=== PATIENT | male | born 1990 | race Caucasian/White ===

== ENCOUNTER 2020-04-22 15:28 | Emergency (ER) | payer OTHER, SELFPAY ==
[2020-04-22 17:19] VITALS: BP 92/50; PULSE 61; RESP 18; TEMP 36.7; O2SAT 96; BMI 20.3
--- NOTE | 2020-04-22 17:20 | ED_ITS ---
HPI - General Adult General Chief complaint: Dental/Oral Stated complaint: DENTAL PAIN Time Seen by Provider: 04/22/20 17:18 Source: patient Mode of arrival: ambulatory Limitations: no limitations History of Present Illness HPI narrative: 29 yo male with past medical history of substance use here with right lower dental pain x months. Seen by dentist and has had multiple infections so tells me they would not pull the tooth. Currently on amoxicillin with continued pain. Onset (ago): month(s) Related Data Previous Rx's Medication Instructions Recorded clindamycin HCl 150 mg PO TID 10 Days #30 cap 04/22/20 ketorolac 10 mg PO Q6H PRN 5 Days #10 tab 04/22/20 Allergies Allergy/AdvReac Type Severity Reaction Status Date / Time acetaminophen [From TYLENOL] AdvReac Mild DIARRHEA Verified 04/22/20 17:25 Review of Systems Review of Systems: Yes all other systems are reviewed and are negative Constitutional: Constitutional: Reports no additional constitutional complaints, Denies body ache(s), Denies chills, Denies fever(s), Denies headache(s) and Denies weakness Eyes: Eyes: Reports no additional eye complaints and Denies change in vision ENT: Reports system reviewed and no additional complaints, except as documented, Denies dizziness, Denies headache(s), Denies nasal congestion, Denies nasal discharge and Denies neck pain Comments: +dental pain Cardiovascular: Cardiovascular: Reports no additional cardiovascular complaints, Denies chest pain, Denies leg edema and Denies dyspnea Respiratory: Respiratory: Reports no additional respiratory complaints, Denies cough and Denies dyspnea Gastrointestinal: Gastrointestinal: Reports no additional gastrointestinal complaints, Denies abdominal pain, Denies diarrhea, Denies nausea and Denies vomiting Genitourinary: Genitourinary: Denies urinary incontinence Musculoskeletal: Musculoskeletal: Reports no additional musculoskeletal complaints, Denies back pain, Denies arthralgias, Denies joint swelling, Denies neck pain, Denies numbness and Denies tingling Integumentary/Breasts: Skin/Breast: Reports system reviewed and no additional complaints, except as docu and Denies rash Neurologic: Reports system reviewed and no additional complaints, except as documented, Denies Abnormal speech present, Denies dizziness, Denies headache( s), Denies numbness, Denies tingling and Denies weakness PMFSH Past Medical History Attestation statement: The following information was validated with the patient. Source: old records reviewed and nursing notes reviewed Physical Exam Vital Signs: Vital Signs: Last Vital Signs Temp 98.1 F 04/22/20 17:19 Pulse 61 04/22/20 17:19 Resp 18 04/22/20 17:19 BP 92/50 L 04/22/20 17:19 Pulse Ox 96 04/22/20 17:19 Body Mass Index 20.3 Const: General: cooperative, healthy appearing, comfortable and no acute distress Orientation/consciousness: patient oriented x3 Limitations: no limitations HENMT: Head: Yes normal to inspection Ears: hearing grossly normal bilaterally General nose exam: Normal external nose present Face and s inus: Yes normal facial exam Mouth: Normal oral and palatal mucosa present Teeth image: 1. extensive caries, broken tooth with local tenderness, swelling and erythema. No fluctuance or abscess noted. No facial swelling or erythema. No trismus Throat: Yes posterior oropharynx normal Eyes: General: appearance normal, both eyes and all related structures Pupils: Equal, round and reactive pupils present Neck: Neck: Yes normal visual inspection Chest: Chest palpation & inspection: normal inspection of the chest Resp: Effort & Inspection: normal respiratory effort Auscultation: clear to auscultation bilaterally Cardio: Rate: regular rate Rhythm: regular rhythm Peripheral pulses: Peripheral pulses 2+ throughout GI: Inspection: Yes normal to inspection Palpation (GI): Soft to palpation and nontender Auscultation: normal bowel sounds Back/Spine/Pelvis: Thoracic/Lumbar Spine: thoracic and lumbar spine normal to inspection Skin: General skin exam: no rashes or lesions noted Neuro: General: patient oriented x3, no focal motor deficits and normal sensation to monofilament Cranial nerves: Yes Equal, round and reactive pupils present Cognition (Neuro): normal cognition Speech: No Abnormal speech present Gait exam (Neuro): Normal gait present Motor exam (neuro): 5/5 motor strength present throughout Extrem: General: Yes normal to inspection Course Course Course Narrative: 1719-Extensive dental caries with local dental infection. No s/s systemic infection. No trismus or concern for ludwigs. Patient offered dental block but denied. On amoxicillin currently. Requesting a dose of IV antibiotics but I do not believe this is necessary for a local infection. Offered alternative antibiotic and accepted by patient. Given dental clinic list. Reviewed oral hygiene, smoking cessation tips, and close f/u with dentist. Reviewed worrisome signs/symptoms and when to return to ED. Comfortable with discharge home. Discharge Plan Discharge Clinical Impression: Toothache Patient Disposition: Home, Self-Care Instructions: Toothache (ED) Additional Instructions: Salt water gargles Stop amoxicillin. Start clindamycin today Topical oragel See dental clinic list Prescriptions: New clindamycin HCl 150 mg capsule 150 mg PO TID 10 Days Qty: 30 RF: 0 ketorolac 10 mg tablet 10 mg PO Q6H PRN (Reason: pain) 5 Days Qty: 10 RF: 0 Interventions: ED Discharge Assessment Last Done: 04/22/20 17:39
[2020-04-22] MEDS: Ketorolac Tromethamine 60 MG/2 ML VIAL IM (17:37)
== END 2020-04-22 18:00 | disposition home or self-care (01) ==
PROVIDERS: Emergency Provider Emergency Medicine
DX: K02.9 Dental caries, unspecified (principal); Z79.899 Other long term (current) drug therapy
CPT/HCPCS: 96372; 99283; 99284; J1885

== ENCOUNTER 2023-01-16 13:55 | Emergency (ER) | payer OTHER, SELFPAY ==
--- NOTE | 2023-01-16 13:56 | ED.GENADULT ---
HPI - General Adult General Chief complaint: Overdose Stated complaint: OD Time Seen by Provider: 01/16/23 13:56 Source: patient and EMS Mode of arrival: EMS Limitations: no limitations History of Present Illness HPI narrative: Patient is a 32 year old assigned male at with no reported medical history presenting to the emergency department today after an accidental OD. Patient states that he passed out in his car and was found by police who gave him Narcan. Patient admitted to EMS that he had used drugs today. Patient denies any dizziness, lightheadedness, abdominal pain, nausea, vomiting, fever, chills, blurry vision, double vision, loss of vision, chest pain, difficulty breathing, shortness of breath, back pain, night sweats, pain with urination, increased urinary frequency, increased urinary urgency, blood in his urine or stool, syncope or a near syncopal episode, recent trauma or falls, bowel incontinence, bladder incontinence, bowel retention, bladder retention, or any other complaints at this time. Severity: mild Severity scale (1-10): 2 Relieving factors: none Exacerbating factors: none Associated symptoms: denies other symptoms Treatments prior to arrival: none Related Data Previous Rx's Medication Instructions Recorded clindamycin HCl 150 mg capsule 150 mg PO TID 10 days #30 caps 04/22/20 ketorolac 10 mg tablet 10 mg PO Q6H PRN pain 5 days #10 04/22/20 tabs Allergies Allergy/AdvReac Type Severity Reaction Status Date / Time acetaminophen [From TYLENOL] AdvReac Mild DIARRHEA Verified 04/22/20 17:25 Review of Systems Constitutional: Constitutional: Reports no additional constitutional complaints, Denies chills, Denies fever(s) and Denies night sweats Eyes: Eyes: Reports no additional eye complaints, Denies blurry vision, Denies change in vision, Denies diplopia, Denies eye discharge, Denies loss of vision and Denies eye pain ENT: Denies dizziness Cardiovascular: Cardiovascular: Reports no additional cardiovascular complaints, Denies chest pain, Denies lightheadedness, Denies Loss of Consciousness and Denies dyspnea Respiratory: Respiratory: Reports no additional respiratory complaints and Denies dyspnea Gastrointestinal: Gastrointestinal: Reports no additional gastrointestinal complaints, Denies abdominal pain, Denies melena, Denies hematochezia, Denies change in bowel habits and Denies change in stool character Genitourinary: Genitourinary: Reports no additional male genitourinary complaints, Denies hematuria, Denies oliguria, Denies difficulty urinating, Denies dysuria, Denies urinary frequency, Denies urinary hesitancy, Denies urinary incontinence and Denies urinary urgency Musculoskeletal: Musculoskeletal: Reports no additional musculoskeletal complaints, Denies numbness and Denies tingling Neurologic: Denies dizziness, Denies loss of vision, Denies numbness and Denies tingling Psychiatric: Psychiatric: Reports no additional psychiatric complaints Endocrine: Endocrine: Reports no additional endocrine complaints Hematologic/Lymphatic: Hematologic/Lymphatic: Reports no additional hematologic/lymphatic complaints Allergic/Immunologic: Allergic/Immunologic: Reports no additional allergic/immunologic complaints [facility] Past Medical History Attestation statement: The following information was validated with the patient. Source: old records reviewed and nursing notes reviewed Social History Social History Advance Directives: No Advance Directives Information Provided: No Physical Exam ED Vital Signs: Vital Signs - 24 hr 01/16/23 14:06 Temperature 97.6 F Pulse Rate 75 Respiratory Rate 16 Blood Pressure 123/66 Pulse Oximetry 97 Oxygen Delivery Method Room Air BMI result Body Mass Index 19.1 Const General: cooperative, no acute distress, alert and awake Nutritional Appearance: well nourished Orientation/consciousness: patient oriented x3 Limitations: no limitations HENMT Head: Yes normal to inspection and Yes atraumatic Ears: hearing grossly normal bilaterally and external ears normal General nose exam: Normal external nose present, no nasal discharge noted and no epistaxis Face and sinus: Yes normal facial exam, No abrasion and No laceration Mouth: Normal oral and palatal mucosa present, no drooling and no muffled voice Eyes General: appearance normal, both eyes and all related structures Periorbital: periorbital findings normal Eyelids: Yes eyelids normal Conjunctivae: conjunctivae normal Pupils: Equal, round and reactive pupils present EOM: EOMs intact bilaterally Neck Neck: Yes normal visual inspection, Yes full ROM and Yes no lymphadenopathy Chest Chest palpation & inspection: normal inspection of the chest Resp Effort & Inspection: normal respiratory effort and able to speak in complete sentences Auscultation: clear to auscultation bilaterally Cardio Rate: regular rate Rhythm: regular rhythm GI Inspection: Yes normal to inspection Neuro General: patient oriented x3 and moves all extremities Cranial nerves: Yes Equal, round and reactive pupils present Cognition (Neuro): normal cognition Motor exam (neuro): 5/5 motor strength present throughout Sensory Exam: Normal double simultaneous stimulation for sensation Coordination: [id number] test normal Extrem General: Yes normal to inspection, Yes full ROM and Yes capillary refill normal Psych Appearance: grossly normal Mental Status: mental status grossly normal Affect: normal affect Attitude: cooperative Thought process: Normal thought process present Thought content: Normal thought content present Insight: Good insight present (Psych) Medical Decision Making Medical Decision Making MDM Narrative: Patient is a 32 year old assigned male at with no reported medical history presenting to the emergency department today after an accidental overdose. Patient's physical exam was unremarkable. Patient refused all blood work and talks of detox. I explained my physical exam findings to the patient. I answered all questions asked by the patient. Patient was given take home narcan. I stressed the importance of the patient taking his medication as prescribed. I stressed the importance of the patient following up with his primary care provider. I stressed the importance of the patient returning to the emergency department immediately if his symptoms were to worsen or if he were to develop any dizziness, shortness of breath, difficulty breathing, chest pain, blurry vision, loss of vision, nausea, vomiting, abdominal pain, fever, chills, back pain, or any other complaints. Patient verbalized agreement and understanding with this treatment plan and discharge. Differential Diagnosis Differential Diagnoses: The differential diagnosis associated with the presentation includes Accidental overdose. Illicit drug use Independent Historian Clinical information obtained from an independent historian. History obtained from or confirmed by: EMS (EMS provided additional history and confirmed the history provided by the patient.) Discharge Plan Discharge Clinical Impression: Accidental overdose Patient Disposition: Home, Self-Care Instructions: Adult Overdose (ED) Additional Instructions: Please do not use illicit drugs. Please keep this Narcan on you at all times. Follow up with your primary care provider. Return to the emergency department immediately if your symptoms worsen or if you develop any dizziness, shortness of breath, difficulty breathing, chest pain, blurry vision, loss of vision, nausea, vomiting, abdominal pain, fever, chills, back pain, or any other complaints. Prescriptions: No Action clindamycin HCl 150 mg capsule 150 mg PO TID 10 Days Qty: 30 0RF ketorolac 10 mg tablet 10 mg PO Q6H PRN (Reason: pain) 5 Days Qty: 10 0RF Referrals: [facility] Family Medicine [Provider Group] (Call to establish and follow up with a primary care provider. If you already have a primary care provider, please follow up with them.) [facility] [Provider Group] (Call to establish and follow up with a primary care provider. If you already have a primary care provider, please follow up with them.) [facility] [Provider Group] (Call to establish and follow up with a primary care provider. If you already have a primary care provider, please follow up with them.) Discharge Date/Time: 01/16/23 14:25 Print Language: Swiss
[2023-01-16 14:06] VITALS: BP 123/66; BP 150/90; PULSE 75; PULSE 90; RESP 16; TEMP 36.4; O2SAT 97; O2SAT 98; BMI 19.1
--- NOTE | 2023-01-16 14:20 | PC.NURSE ---
patient given 2 take home narcan, speaking in clear and full sentences. patient is awake and alert, ambulated off of unit with steady gait
--- NOTE | 2023-01-16 14:29 | HO.SUDE ---
Met with pt in [facility] after pt presented to ED via EMS after being found in car unresponsive and receiving Narcan with positive effect. Pt denied drug use to provider and is anxious to discharge. Pt briefly engages in conversation with t/w, reports this was third overdose in the past 9 years. Pt reports currently on Suboxone through [facility] but is switching to [facility]. Per Rin, last Suboxone script filled in 10/21/22. Pt reports heroin/fentanyl use, not much, about a bag today. Pt anxious to dc and locate 's car. Pt reports having Narcan at home and is discharging home with Narcan. Denies questions or concerns for t/w. Declines further recovery support.
== END 2023-01-16 14:25 | disposition home or self-care (01) ==
LOC: HO.ED 14:16
PROVIDERS: Emergency Provider Emergency Medicine
DX: T40.1X1A Poisoning by heroin, accidental (unintentional), initial encounter (principal); R40.4 Transient alteration of awareness; Y92.810 Car as the place of occurrence of the external cause; F11.20 Opioid dependence, uncomplicated
CPT/HCPCS: 99283; 99284

== ENCOUNTER 2023-09-30 17:06 | Emergency (ER) | payer OTHER, SELFPAY ==
[2023-09-30 17:14] VITALS: BP 144/96; PULSE 76; RESP 24; TEMP 36.2; O2SAT 98; BMI 20.3
[2023-09-30 17:47] LABS: MANUAL DIFF FLAG NO
[2023-09-30 18:01] LABS: Basophils Absolute Auto 0.1 X10*3/uL (0.0-0.2); Basophils Percent Auto 0.7 % (0-2); Eosinophils Absolute Auto 0.2 X10*3/uL (0.0-0.4); Hematocrit 46.2 % (42.0-52.0); Hemoglobin 15.6 g/dl (14.0-18.0); Imm Gran Abs Auto 0.02 X10*3/uL (0.00-0.03); Imm Gran Pct Auto 0.3 % (0.0-0.4); Lymphocytes Percent Auto 26.3 % (20-40); Mean Corpuscular HGB Conc 33.8 g/dl (31.0-36.0); Mean Corpuscular Hemoglobin 31.8 pg (27.0-33.0); Mean Corpuscular Volume 94.3 fL (80.0-98.0); Monocytes Absolute Auto 0.3 X10*3/uL (0.1-1.2); Monocytes Percent Auto 4.1 % (2-11); Neutrophils Absolute Auto 5.1 x10*3/uL (2.0-8.3); Neutrophils Percent Auto 66.6 % (45-73); Platelet Count 192 X10*3/uL (160-400); Red Cell Distribution Width 12.3 % (11.0-16.0); White Blood Count 7.6 X10*3/uL (4.8-10.8)
[2023-09-30 18:17] LABS: Anion Gap 11 (12-20); Blood Urea Nitrogen 12 mg/dL (9-16); Calcium 10.2 mg/dL (8.4-10.2); Carbon Dioxide 34 mmol/L (22-29); Chloride 101 mmol/L (96-108); Creatinine Clr Calc Pharmacy 115.1; Estimated Glomerular Filt Rate > 60; Ethanol < 10 mg/dL; Glucose Random 120 mg/dL (60-115); Potassium 4.1 mmol/L (3.3-5.1); Sodium 142 mmol/L (135-145)
[2023-09-30 18:28] LABS: Salicylate < 5.0 mg/dL (15-30)
--- NOTE | 2023-09-30 18:35 | ED.GENADULT ---
HPI - General Adult General Chief complaint: Psychiatric Symptoms Stated complaint: crisis Time Seen by Provider: 09/30/23 17:18 Source: patient, RN notes reviewed and old records reviewed Mode of arrival: ambulatory Limitations: no limitations History of Present Illness ED Provider: Najma CARRION narrative: 32-year-old male presents for evaluation of depression, anxiety and substance abuse. Patient reports last few months he has lost his grandmother, mother, and father. He states that just recently his filed for divorce and ?she turned my kids against me. ? Patient states that because he has been going through so much she has relapsed with heroin, cocaine, Xanax off the street, as well as ecstasy. He states ?I have just been doing every drug I can to take my mind off things and short my thoughts off. ? He is not suicidal but feels very hopeless He has no other complaints or concerns at this time Related Data Home Medications ?Medication ?Instructions ?Recorded ?Confirmed methadone 10 mg/5 mL oral solution 110 mg PO DAILY 10/01/23 10/01/23 Allergies Allergy/AdvReac Type Severity Reaction Status Date / Time acetaminophen [From TYLENOL] AdvReac Mild DIARRHEA Verified 09/30/23 17:16 Review of Systems Constitutional: Constitutional: Denies body ache(s), Denies chills, Denies fever(s) and Denies headache(s) Eyes: Eyes: Denies blurry vision ENT: Denies headache(s) Cardiovascular: Cardiovascular: Denies chest pain and Denies dyspnea Respiratory: Respiratory: Denies cough and Denies dyspnea Gastrointestinal: Gastrointestinal: Denies abdominal pain, Denies nausea and Denies vomiting Musculoskeletal: Musculoskeletal: Denies back pain Integumentary/Breasts: Skin/Breast: Denies rash Neurologic: Denies headache(s) Psychiatric: Psychiatric: Reports anxiety, Reports depression, Reports hopelessness, Reports anhedonia and Denies suicidal ideation PMF Social History Social History Smoked in Last 30 Days: Yes Use of substances other than those prescribed or required for medical reasons: Yes Substance Use Type: Crack/Cocaine and Heroin Substance Use Frequency: Recent Binge Last Used Substance: Days (ago) Advance Directives: No Advance Directives Information Provided: No Physical Exam ED Vital Signs: Vital Signs - 24 hr 10/01/23 19:17 07/15/24 19:46 10/02/23 01:09 Temperature 98.7 F 97.4 F Pulse Rate 69 89 Respiratory Rate 16 16 18 Blood Pressure 115/55 L 123/74 Pulse Oximetry 98 99 Oxygen Delivery Method Room Air Room Air 10/02/23 10:50 Temperature 98.1 F Pulse Rate 78 Respiratory Rate 16 Blood Pressure 132/79 Pulse Oximetry 95 Oxygen Delivery Method Room Air BMI result Body Mass Index 20.3 Const General: healthy appearing, comfortable, no acute distress, alert and awake Nutritional Appearance: well nourished Orientation/consciousness: patient oriented x3 HENMT Head: Yes normocephalic and Yes atraumatic Eyes Eyelids: Yes eyelids normal Conjunctivae: conjunctivae normal Sclerae: sclerae normal Corneas: corneas normal Pupils: Equal, round and reactive pupils present EOM: EOMs intact bilaterally Neck Neck: Yes full ROM Resp Effort & Inspection: normal respiratory effort, able to speak in complete sentences and not labored GI Inspection: No distended Palpation (GI): Soft to palpation, not firm, nontender, no guarding and not rigid Skin General skin exam: elasticity normal Neuro General: patient oriented x3 Cranial nerves: Yes Equal, round and reactive pupils present and Yes Bilaterally intact EOM present Cognition (Neuro): normal cognition Extrem Other: Moving all extremities well without any obvious deformities Psych Appearance: grossly normal Mental Status: mental status grossly normal Speech and movement: Normal speech and movement present Affect: Sad affect present Attitude: cooperative Thought process: Normal thought process present Thought content: suicidality and Depressive thoughts present Insight: Good insight present (Psych) Judgement: Good judgement present (Psych) Medications Administered Generic Name Dose Route Start Last Admin Trade Name Freq PRN Reason Stop Dose Admin Lorazepam 2 mg 10/01/23 07:35 10/02/23 10:29 Lorazepam 1 Mg Tablet PO 2 mg Q3H PRN Administration Alcohol Withdrawal Methadone HCl 110 mg 10/01/23 09:00 10/02/23 08:17 Methadone Hcl 20 Mg/2 Ml Oral.Conc PO 110 mg DAILY INOCENCIO Administration Nicotine Polacrilex 2 mg 10/01/23 16:18 10/02/23 07:29 Nicotine Polacrilex 2 Mg Gum BUCCAL 2 mg RQ4H PRN Administration Nicotine Cravings Discontinued Medications Generic Name Dose Route Start Last Admin Trade Name Freq PRN Reason Stop Dose Admin Lorazepam 2 mg 09/30/23 20:17 09/30/23 20:26 Lorazepam 1 Mg Tablet PO 09/30/23 20:18 2 mg ONCE ONE Administration Lorazepam 2 mg 10/01/23 03:09 10/01/23 03:15 Lorazepam 1 Mg Tablet PO 10/01/23 03:10 2 mg ONCE ONE Administration Nicotine 21 mg 10/02/23 10:23 10/02/23 10:29 Nicotine 21 Mg Patch.Td24 TRANSDERMA 10/02/23 10:24 21 mg DAILY ONE Administration Medical Decision Making Medical Decision Making [facility] Narrative: 32-year-old male presents for evaluation of depression and polysubstance abuse. Plan for medical clearance and likely care team evaluation. The patient is not actively suicidal and is not on a section 12 Differential Diagnosis Differential Diagnoses: The differential diagnosis associated with the presentation includes Depression Anxiety Substance abuse Polysubstance abuse Suicidal ideation Lab Data [facility] Lab Attestation statement: I reviewed the patient's lab results. No leukocytosis or anemia. Normal platelet count. No significant electrolyte abnormalities. 09/30/23 17:41 09/30/23 17:41 Labs: Lab Results 09/30/23 09/30/23 Range/Units 17:41 19:44 WBC 7.6 (4.8-10.8) X10*3/uL RBC 4.90 (4.60-5.80) X10*6/uL Hgb 15.6 (14.0-18.0) g/dl Hct 46.2 (42.0-52.0) % MCV 94.3 (80.0-98.0) fL MCH 31.8 (27.0-33.0) pg MCHC 33.8 (31.0-36.0) g/dl RDW 12.3 (11.0-16.0) % Plt Count 192 (160-400) X10*3/uL MPV 11.0 (9.4-12.4) fL Immature Gran % (Auto) 0.3 (0.0-0.4) % Neut % (Auto) 66.6 (45-73) % Lymph % (Auto) 26.3 (20-40) % [place] % (Auto) 4.1 (2-11) % Eos % (Auto) 2.0 (0-4) % Baso % (Auto) 0.7 (0-2) % Lymph # (Auto) 2.0 (1.2-4.9) X10*3/uL [place] # (Auto) 0.3 (0.1-1.2) X10*3/uL Eos # (Auto) 0.2 (0.0-0.4) X10*3/uL Baso # (Auto) 0.1 (0.0-0.2) X10*3/uL Abs Immat Gran (auto) 0.02 (0.00-0.03) X10*3/uL Absolute Neuts (auto) 5.1 (2.0-8.3) x10*3/uL Absolute Nucleated RBC 0.000 (0.0-0.012) X10*3/uL Nucleated RBC % (auto) 0.0 (0.0-0.2) /100WBC Sodium 142 (135-145) mmol/L Potassium 4.1 (3.3-5.1) mmol/L Chloride 101 (96-108) mmol/L Carbon Dioxide 34 H (22-29) mmol/L Anion Gap 11 L (12-20) BUN 12 (9-16) mg/dL Creatinine 0.87 (0.5-1.4) mg/dL Estim Creat Clear Calc 115.1 Estimated GFR > 60 Random Glucose 120 H (60-115) mg/dL Calcium 10.2 (8.4-10.2) mg/dL Urine Color Yellow Urine Appearance Cloudy Urine pH 6.5 (5.0-9.0) Ur Specific [place] 1.010 (1.005-1.025) Urine Protein Negative (Neg-Trace) mg/dL Urine Glucose (UA) Negative (Negative) mg/dL Urine Ketones Negative (Negative) mg/dL Urine Blood Negative (Negative) Urine Nitrite Negative (Negative) Ur Leukocyte Esterase Negative (Negative) Salicylates < 5.0 L (15-30) mg/dL Urine Opiates Screen POSITIVE H (Not Detect) Ur Buprenorphine Scrn Not Detected (Not Detect) ng/mL Ur Oxycodone Screen Not Detected (Not Detect) ng/mL Urine Methadone Screen Positive H (Not Detect) ng/mL Urine Fentanyl Screen POSITIVE H (Not Detect) Ur Barbiturates Screen Not Detected (Not Detect) Ur Phencyclidine Scrn Not Detected (Not Detect) Ur Amphetamines Screen Not Detected (Not Detect) U Benzodiazepines Scrn POSITIVE H (Not Detect) Urine Cocaine Screen POSITIVE H (Not Detect) U Marijuana (THC) Screen POSITIVE H (Not Detect) Ethyl Alcohol < 10 mg/dL Discharge Plan Discharge Clinical Impression: Polysubstance abuse, Depression Patient Disposition: Xfer Psychiatric Hosp Transfer Details: TO [facility] Prescriptions: No Action methadone 10 mg/5 mL Solution 110 mg PO DAILY Patient Comments: Dose verified Linnea BAKER from [facility] [place] at [phone] Interventions: [place]-Suicide Risk Severity Scale Last Done: 10/01/23 19:17 Print Language: Sami ED Observation ED Observation Admit Diagnostic Studies: Mental health evaluation ED Observation Progress Notes 1: Progress Note: 10/02/23 - 08:30 Bethel Chacon DO ED Observation Discharge Plan Exam: Patient here voluntary for depression polysubstance abuse labs and vitals remain normal Comment: Patient going to [facility] transfer paperwork signed.
[2023-09-30 20:00] LABS: Appearance Urine Cloudy; Color Urine Yellow; Glucose Urine UA Negative (Negative); Leukocyte Esterase Urine Negative (Negative); Nitrite Urine Negative (Negative); PH 6.5 (5.0-9.0); Urine Blood Negative (Negative); Urine Ketones Negative (Negative); Urine Protein Negative (Neg-Trace)
[2023-09-30 20:09] LABS: Amphetamine Screen Urine Not Detected (Not Detect); Barbiturates, Urine Not Detected (Not Detect); Benzodiazepines Screen Urine POSITIVE (Not Detect); Buprenorphine Scr Not Detected (Not Detect); Cannabinoid Screen Urine POSITIVE (Not Detect); Cocaine Screen Urine POSITIVE (Not Detect); Fentanyl, urine POSITIVE (Not Detect); Methadone Screen, Urine Positive (Not Detect); Opiate Screen Urine POSITIVE (Not Detect); Oxycodone Screen Urine Not Detected (Not Detect); Phencyclidine Screen Urine Not Detected (Not Detect)
[2023-09-30] MEDS: LORazepam 1 MG TABLET 2 MG PO (20:26)
[2023-10-01 01:37] VITALS: BP 117/79; PULSE 74; RESP 17; TEMP 36.9; O2SAT 98
[2023-10-01] MEDS: LORazepam 1 MG TABLET 2 MG PO ×6 (03:15→22:43)
--- NOTE | 2023-10-01 06:41 | PC.NURSE ---
Patient slept through the night, Ativan 2 mg po twice at 2025 and 314 for comfort, methadone dose verified/faxed to pharmacy/pending provider's approval, care consult ordered/pending evaluation, VSS, no behavior and safety concerns at this time, will continue to monitor
--- NOTE | 2023-10-01 07:17 | HE.PHANOTE ---
Methadone Pt receives from [facility] [place] ([phone] or [phone]). OLIVIA Fischer confirmed patient receives 110 mg, last received 09/29/23 at 01/09/24.
[2023-10-01] MEDS: methADONE HCl 20 MG/2 ML ORAL.CONC 110 MG PO (08:04)
--- NOTE | 2023-10-01 08:34 | PC.NURSE ---
Assumed care of patient at 0645, patient is awake, ambulating with steady gait around BH pod. patient reports that he feels like he is in benzo withdrawal due to a recent Xanax binge. patient requesting Ativan. DO Mary aware. PRN ativan administered per MAY. Patient appears more comfortable now, respirations even and unlabored Continue plan of care for CARE team bria
[2023-10-01] MEDS: Nicotine Polacrilex 2 MG GUM BUCCAL (16:34)
--- NOTE | 2023-10-01 19:16 | PC.NURSE ---
patient appears to remain at rest at present respirations are even and unlabored patient had requested ativan soon after t/w's arrival patient appears in no distress.
[2023-10-01 19:17] VITALS: RESP 16
[2023-10-01 19:46] VITALS: BP 115/55; PULSE 69; RESP 16; TEMP 37.1; O2SAT 98
--- NOTE | 2023-10-02 | ECG_ITS ---
Test Reason : PROLONGED T WAVES Blood Pressure : / mmHG Vent. Rate : 063 BPM Atrial Rate : 063 BPM P-R Int : 142 ms QRS Dur : 084 ms QT Int : 406 ms P-R-T Axes : 072 072 063 degrees QTc Int : 415 ms Normal sinus rhythm Normal ECG No previous ECGs available Referred By: Generic ED Physician Electronically Signed By:STEVEN LANDERS MD
[2023-10-02 01:09] VITALS: BP 123/74; PULSE 89; RESP 18; TEMP 36.3; O2SAT 99
[2023-10-02] MEDS: LORazepam 1 MG TABLET 2 MG PO ×4 (02:19→13:45)
[2023-10-02] MEDS: Nicotine Polacrilex 2 MG GUM BUCCAL ×2 (07:29→12:52)
[2023-10-02] MEDS: methADONE HCl 20 MG/2 ML ORAL.CONC 110 MG PO (08:17)
[2023-10-02] MEDS: Nicotine 21 MG PATCH.TD24 TRANSDERMA (10:29)
[2023-10-02 10:50] VITALS: BP 132/79; PULSE 78; RESP 16; TEMP 36.7; O2SAT 95
--- NOTE | 2023-10-02 11:07 | MHC.CARE ---
Patient has been accepted to [facility] for today, ETA for soonest available transport per Aniyah @ [facility], accepting provider is Dr Karol Reyes. Clark ABEL booking transport now.
[2023-10-02 14:15] VITALS: BP 132/79; PULSE 78; RESP 16; TEMP 36.7; O2SAT 95
== END 2023-10-02 14:18 ==
PROVIDERS: Emergency Provider Internal Medicine
DX: F33.1 Major depressive disorder, recurrent, moderate (principal); F41.9 Anxiety disorder, unspecified; F11.10 Opioid abuse, uncomplicated; F14.10 Cocaine abuse, uncomplicated; R94.31 Abnormal electrocardiogram [ECG] [EKG]; Z79.899 Other long term (current) drug therapy
CPT/HCPCS: 36415; 80048; 80179; 80307; 81003; 85025; 93005; 99285; S9485

== ENCOUNTER → 2023-10-02 10:01 | Outpatient (BNV) | payer OTHER, SELFPAY | PROVIDERS: Emergency Provider Internal Medicine; Visit Provider Internal Medicine Cardiovascular Disease | DX: I45.81 Long QT syndrome (principal) | CPT/HCPCS: 93010 ==

== ENCOUNTER 2024-02-14 14:00 | Emergency (ER) | payer OTHER, SELFPAY ==
[2024-02-14 14:04] VITALS: BP 130/98; BP 145/94; PULSE 105; PULSE 108; RESP 14; TEMP 36.4; O2SAT 97; O2SAT 98; BMI 24.3
--- NOTE | 2024-02-14 14:06 | ED.GENADULT ---
HPI - General Adult General Chief complaint: Psychiatric Symptoms Stated complaint: SI BEHAVIORAL Time Seen by Provider: 02/14/24 14:10 Source: patient and EMS Mode of arrival: EMS Limitations: no limitations History of Present Illness ED Provider: ANASTACIA Gong HPI narrative: 33-year-old male history of substance abuse presenting to the emergency department with anxiety, depression, suicidal ideation with plan to overdose. Patient reports he has been having increasing life stressors he got out of residential a few weeks ago he tried to find his family , kids at the correction where he left thumb however when he came back his family was no longer there. He feels alone. His mom is terminally ill and no longer at home. He feels like he has been abandoned. Denies hallucinations. Denies substance abuse. Denies medical complaints at this time such as chest pain, shortness of breath, fevers, chills, nausea, vomiting, abdominal pain. Related Data Home Medications ?Medication ?Instructions ?Recorded ?Confirmed methadone 10 mg/5 mL oral solution 110 mg PO DAILY 10/01/23 10/01/23 clonidine HCl 0.2 mg tablet 0.2 mg PO BID 02/14/24 02/14/24 gabapentin 400 mg capsule 400 mg PO TID 02/14/24 02/14/24 hydroxyzine pamoate 50 mg capsule 50 mg PO TID 02/14/24 02/14/24 nicotine (polacrilex) 2 mg gum 2 mg PO Q4H PRN Nicotine Cravings 02/14/24 02/14/24 Allergies Allergy/AdvReac Type Severity Reaction Status Date / Time acetaminophen [From TYLENOL] AdvReac Mild DIARRHEA Verified 02/14/24 14:13 Review of Systems Review of Systems: Yes all other systems are reviewed and are negative PMFSH Past Medical History Attestation statement: The following information was validated with the patient. Source: old records reviewed and nursing notes reviewed Social History Social History Alcohol intake: current Smoked in Last 30 Days: Yes Use of substances other than those prescribed or required for medical reasons: Yes Substance Use Type: Crack/Cocaine and Heroin Physical Exam ED Vital Signs: Vital Signs - 24 hr 02/14/24 14:04 02/14/24 14:25 Temperature 97.5 F Pulse Rate 108 H Respiratory Rate 14 16 Blood Pressure 145/94 H Pulse Oximetry 97 Oxygen Delivery Method Room Air BMI result Body Mass Index 24.3 vss Appearance: Alert.? Oriented X3.? No acute distress.? Head: Normocephalic, atraumatic, no step-offs or deformities Eyes: Pupils equal, round and reactive to light.? CVS: Normal heart rate and rhythm.? Pulses normal.? Respiratory: No respiratory distress.? Abdomen: flat Skin: Skin warm and dry.? Normal skin color.? Extremities: No lower extremity edema.? 5/5 strength to bilateral upper and lower extremities Neuro: Oriented X 3.? No motor deficit.? No sensory deficit. CN 2-12 intact Course Reevaluation(s) Reevaluation #1: CBC unremarkable. Chemistry pending. UA clean. Utox pending. Time: 15:08 Reevaluation #2: Chemistry with no acute findings needing intervention, transaminases elevated, no abdominal discomfort reported, this is likely secondary to polysubstance abuse/alcohol abuse. Salicylates, acetaminophen and ethanol negative. At this time patient to be placed into observation to allow more time to be evaluated by behavioral health team. At time observation was started patient common cooperative no acute distress will continue to monitor Time: 15:14 Medical Decision Making Medical Decision Making [facility] Narrative: 33-year-old male presents with anxiety, depression and suicidal ideation due to increasing life stressors. Physical exam benign History and physical exam concerning for substance abuse with anxiety, depression and suicidal ideation. Plan medical clearance evaluation by behavioral health team Differential Diagnosis Differential Diagnoses: The differential diagnosis associated with the presentation includes (History and physical exam concerning for substance abuse with anxiety, depression and suicidal ideation.) Admission/Observation Consideration of admission/observation: Escalation of care including admission/observation considered Lab Data [facility] Lab Attestation statement: I reviewed the patient's lab results. 02/14/24 14:46 02/14/24 14:46 Labs: Lab Results 02/14/24 02/14/24 Range/Units 14:30 14:46 WBC 8.1 (4.8-10.8) X10*3/uL RBC 4.96 (4.60-5.80) X10*6/uL Hgb 15.1 (14.0-18.0) g/dl Hct 44.9 (42.0-52.0) % MCV 90.5 (80.0-98.0) fL MCH 30.4 (27.0-33.0) pg MCHC 33.6 (31.0-36.0) g/dl RDW 12.9 (11.0-16.0) % Plt Count 258 D (160-400) X10*3/uL MPV 10.3 (9.4-12.4) fL Immature Gran % (Auto) 0.2 (0.0-0.4) % Neut % (Auto) 70.2 (45-73) % Lymph % (Auto) 19.7 L (20-40) % Schleicher % (Auto) 7.9 (2-11) % Eos % (Auto) 1.5 (0-4) % Baso % (Auto) 0.5 (0-2) % Lymph # (Auto) 1.6 (1.2-4.9) X10*3/uL Schleicher # (Auto) 0.6 (0.1-1.2) X10*3/uL Eos # (Auto) 0.1 (0.0-0.4) X10*3/uL Baso # (Auto) 0.0 (0.0-0.2) X10*3/uL Abs Immat Gran (auto) 0.02 (0.00-0.03) X10*3/uL Absolute Neuts (auto) 5.7 (2.0-8.3) x10*3/uL Absolute Nucleated RBC 0.000 (0.0-0.012) X10*3/uL Nucleated RBC % (auto) 0.0 (0.0-0.2) /100WBC Sodium 147 H (135-145) mmol/L Potassium 4.6 (3.3-5.1) mmol/L Chloride 106 (96-108) mmol/L Carbon Dioxide 29 (22-29) mmol/L Anion Gap 17 (12-20) BUN 13 (9-16) mg/dL Creatinine 1.02 (0.5-1.4) mg/dL Estim Creat Clear Calc 97.7 Estimated GFR > 60 Random Glucose 104 (60-115) mg/dL Calcium 9.9 (8.4-10.2) mg/dL Magnesium 2.1 (1.6-2.6) mg/dL Total Bilirubin 0.8 (0.0-1.0) mg/dL AST 122 H (5-37) U/L ALT 172 H (0-40) U/L Total Protein 8.0 (6.5-8.0) g/dL Albumin 4.1 (3.5-5.0) g/dL Lipase 17 (8-78) U/L Urine Color Dark Yellow Urine Appearance Clear Urine pH 6.0 (5.0-9.0) Ur Specific [place] >= 1.030 H (1.005-1.025) Urine Protein Trace (Neg-Trace) mg/dL Urine Glucose (UA) Negative (Negative) mg/dL Urine Ketones Negative (Negative) mg/dL Urine Blood Negative (Negative) Urine Nitrite Negative (Negative) Ur Leukocyte Esterase Negative (Negative) Salicylates < 5.0 L (15-30) mg/dL Acetaminophen < 3 (<30) mcg/mL Ethyl Alcohol < 10 mg/dL External Record Review External record reviewed: Office record and Outpatient record Chronic Conditions Patient?s care impacted by: Other (substance abuse ) Critical Care Time Critical Care Time Critical Care Time: No Discharge Plan Discharge Clinical Impression: Suicide ideation, Anxiety, Depressed Patient Disposition: Still a Patient Prescriptions: No Action methadone 10 mg/5 mL Solution 110 mg PO DAILY Patient Comments: Dose verified Linnea BAKER from [facility] [place] at [phone] nicotine (polacrilex) 2 mg gum 2 mg PO Q4H PRN (Reason: Nicotine Cravings) gabapentin 400 mg capsule 400 mg PO TID hydroxyzine pamoate 50 mg capsule 50 mg PO TID clonidine HCl 0.2 mg tablet 0.2 mg PO BID Interventions: [place]-Suicide Risk Severity Scale Last Done: 02/14/24 14:25 Print Language: Tuvaluan
[2024-02-14 14:25] VITALS: RESP 16
--- NOTE | 2024-02-14 14:37 | PC.NURSE ---
Jesús comes in today from the streets, he reports that he is homeless since coming out of shelter a few weeks ago. He reports that he was released from shelter, went back to the custodial that his family was staying at and found his family to be gone. He reports that he went to [facility] for help, he was inpatient for a little less than a week and then once again was released back to the streets. he reports that he was able to visit his kids for a short amount of time but then his took the kids in the middle of the night, timeline of events unclear to this automobile service writer. Pt reports that his also recently filed for divorce and this is also causing him a great deal of stress. Patient is otherwise in no apparent distress, no pain, no complaints offerred. Pt is calm and coopeartive, help seeking at this time. Reporting SI wtihout a plan
[2024-02-14 14:39] LABS: Appearance Urine Clear; Color Urine Dark Yellow; Glucose Urine UA Negative (Negative); Leukocyte Esterase Urine Negative (Negative); Nitrite Urine Negative (Negative); Specific Gravity - Urine >= 1.030 (1.005-1.025); Urine Blood Negative (Negative); Urine Ketones Negative (Negative); Urine Protein Trace mg/dL (Neg-Trace)
[2024-02-14 14:51] LABS: MANUAL DIFF FLAG NO
[2024-02-14 14:54] LABS: Basophils Percent Auto 0.5 % (0-2); Eosinophils Absolute Auto 0.1 X10*3/uL (0.0-0.4); Eosinophils Percent Auto 1.5 % (0-4); Hematocrit 44.9 % (42.0-52.0); Hemoglobin 15.1 g/dl (14.0-18.0); Imm Gran Abs Auto 0.02 X10*3/uL (0.00-0.03); Imm Gran Pct Auto 0.2 % (0.0-0.4); Lymphocytes Absolute Auto 1.6 X10*3/uL (1.2-4.9); Lymphocytes Percent Auto 19.7 % (20-40); Mean Corpuscular HGB Conc 33.6 g/dl (31.0-36.0); Mean Corpuscular Hemoglobin 30.4 pg (27.0-33.0); Mean Corpuscular Volume 90.5 fL (80.0-98.0); Mean Platelet Volume 10.3 fL (9.4-12.4); Monocytes Absolute Auto 0.6 X10*3/uL (0.1-1.2); Monocytes Percent Auto 7.9 % (2-11); Neutrophils Absolute Auto 5.7 x10*3/uL (2.0-8.3); Neutrophils Percent Auto 70.2 % (45-73); Platelet Count 258 X10*3/uL (160-400); Red Blood Count 4.96 X10*6/uL (4.60-5.80); Red Cell Distribution Width 12.9 % (11.0-16.0); White Blood Count 8.1 X10*3/uL (4.8-10.8)
[2024-02-14 15:08] LABS: Acetaminophen LAB < 3 mcg/mL (<30); Salicylate < 5.0 mg/dL (15-30)
[2024-02-14 15:12] LABS: Alanine Aminotransferase 172 U/L (0-40); Albumin Level 4.1 g/dL (3.5-5.0); Anion Gap 17 (12-20); Aspartate Amino Transferase 122 U/L (5-37); Bilirubin Total 0.8 mg/dL (0.0-1.0); Blood Urea Nitrogen 13 mg/dL (9-16); Calcium 9.9 mg/dL (8.4-10.2); Carbon Dioxide 29 mmol/L (22-29); Chloride 106 mmol/L (96-108); Creatinine Clr Calc Pharmacy 97.7; Estimated Glomerular Filt Rate > 60; Ethanol < 10 mg/dL; Glucose Random 104 mg/dL (60-115); Lipase 17 U/L (8-78); Magnesium 2.1 mg/dL (1.6-2.6); Potassium 4.6 mmol/L (3.3-5.1); Sodium 147 mmol/L (135-145)
[2024-02-14 15:26] LABS: Alkaline Phosphatase 112 U/L (39-117)
[2024-02-14 15:34] LABS: Amphetamine Screen Urine Not Detected (Not Detect); Barbiturates, Urine Not Detected (Not Detect); Benzodiazepines Screen Urine Not Detected (Not Detect); Buprenorphine Scr Not Detected (Not Detect); Cannabinoid Screen Urine POSITIVE (Not Detect); Cocaine Screen Urine POSITIVE (Not Detect); Fentanyl, urine POSITIVE (Not Detect); Methadone Screen, Urine Positive (Not Detect); Opiate Screen Urine POSITIVE (Not Detect); Oxycodone Screen Urine Not Detected (Not Detect); Phencyclidine Screen Urine Not Detected (Not Detect)
[2024-02-14] MEDS: hydrOXYzine HCL 50 MG TABLET PO ×2 (16:44→21:07)
--- NOTE | 2024-02-14 16:50 | PC.NURSE ---
pt reports he is withdrawing from benzos, he reports to this RN that he wants to stop methadone or at least taper from it. pt does appear agitated and unhappy at this time. Pt medicated with hydroxyzine per MAR
[2024-02-14] MEDS: LORazepam 2 MG/ML VIAL IM (17:35)
--- NOTE | 2024-02-14 19:51 | PC.NURSE ---
Pt reporting no relief with Ativan IM administration. Pt continues to report tremor, anxiety and sweating. Provider aware. Pt also reports being off his methadone for four days. He reports that he takes 100mg Methadone at baseline from [facility]. [facility] facility closed today and there is no after hours number to reach out to. Plan to give patient 30mg Methadone for the time being until we are able to verify
[2024-02-14] MEDS: methADONE HCl 20 MG/2 ML ORAL.CONC 30 MG PO (20:10)
[2024-02-14] MEDS: cloNIDine HCL 0.2 MG TABLET PO (21:07)
[2024-02-14] MEDS: Gabapentin 400 MG CAPSULE PO (21:07)
[2024-02-14 21:16] VITALS: BP 131/76; PULSE 72; RESP 18; TEMP 36.6; O2SAT 97
[2024-02-14 22:05] VITALS: PULSE 72
--- NOTE | 2024-02-14 22:06 | PC.NURSE ---
Patient once again reporting feeling unwell, COWS score of 16. ANASTACIA Zavala aware
[2024-02-14] MEDS: Morphine Sulfate Immed Release 15 MG TABLET 30 MG PO (22:41)
[2024-02-14] MEDS: LORazepam 1 MG TABLET 2 MG PO (22:41)
--- NOTE | 2024-02-14 23:28 | PC.NURSE ---
Addendum entered by Odilia Heard RN 02/14/24 23:34: Pt is not wearing a hat. Information entered in error. Addendum entered by Odilia Heard RN 02/14/24 23:33: Pt is A 33 y/o male. Original Note: Took report from off-going RN at 2300 hours. Pt is a 33 y/o female who presents for evaluation of SI without a plan and polysubstance abuse. Pt is calm and cooperative, independent with ADLs, and denies any HI at this time. Pt is wearing a hat, reports it is for congregation reason, and has was checked for safety upon arrival. Inpatient bed search is ongoing. Will continue to monitor for any changes.
--- NOTE | 2024-02-15 | ECG_ITS ---
Test Reason : CHECK QT Blood Pressure : / mmHG Vent. Rate : 075 BPM Atrial Rate : 075 BPM P-R Int : 136 ms QRS Dur : 086 ms QT Int : 424 ms P-R-T Axes : 073 070 049 degrees QTc Int : 473 ms Normal sinus rhythm Normal ECG When compared with ECG of 02-OCT-2023 10:01, No significant changes seen Referred By: Chery Hernandez Electronically Signed By:JAJA KRUSE
--- NOTE | 2024-02-15 01:29 | PC.NURSE ---
Pt is sleeping in bed in supine position, appears comfortable. Easily arousable with verbal stimuli. Changes positions independently as desired. Will continue to monitor for any changes.
--- NOTE | 2024-02-15 01:49 | PC.NURSE ---
Pt reports feeling weak and asked for some juice and water. Pt has been up freqently to the nurse's station without issue asking for food and drinks.
[2024-02-15 02:50] VITALS: PULSE 66
[2024-02-15 02:52] VITALS: BP 100/71; PULSE 68; RESP 16; TEMP 36.4; O2SAT 96
[2024-02-15 02:56] VITALS: BP 100/71; PULSE 66; RESP 16; TEMP 36.4; O2SAT 96
[2024-02-15 03:18] VITALS: BP 100/71
--- NOTE | 2024-02-15 03:20 | PC.NURSE ---
Pt OOB and verbalized frustration with Doctor after being offered Clonidine for c/o chills, restless legs, racing thoughts, and feeling itching in his arms. Pt decined the clonidine and threatened to kick the alex and wake everyone up. With anger in his voice, expressed that clonidine won't do anything for someone who takes 100mg of Methadone daily. Security contacted and asked to float into the pod in case of escalation. Pt requested to speak with the doctor directly. made aware.
--- NOTE | 2024-02-15 03:46 | PC.NURSE ---
Pt is becoming increasingly agitated and now sitting at the nurse's station waiting for the doctor to appear for further conversation. Pt reports he will leave here in handcuffs if he has too just to get what he needs for medications.
[2024-02-15] MEDS: LORazepam 1 MG TABLET 2 MG PO ×4 (04:07→13:34)
--- NOTE | 2024-02-15 06:19 | HE.PHANOTE ---
Addendum entered by Carine Spears [facility] 02/15/24 06:53: Spoke to Odilia in the pod who called [facility], Odilia spoke to behavioral RN Simran who confirmed he last got 100mg on 02/10 @0624. Contacted Dr[address] Bacon to reduce dose to 75mg due to this being his 4th missed day Original Note: RE: methadone Received verification form; last dose 100mg on 01/30/24 @0800 from [facility]. Provider put in for 100mg daily but was messaged about re-titration.
--- NOTE | 2024-02-15 06:54 | PC.NURSE ---
Last dose of methadone at [facility] was 100mg on 01/30/24 at 0800 hrs. Pt was admitted to [facility] 01/31/2024 - 02/11/24. Last dose of methadone at [facility] was 100mg on 02/11/24 at 0624 hrs per PAGE Khalil. Pt discharged home from [facility]. Last verified dose of administration is 02/11/24 at 0624 hrs. Information was relayed to [facility] pharmacy. Pharmacy to call provider to adjust the dose by 25%. Current order for methadone is pending correction. Pt requesting more ativan, provider aware. Will continue to monitor for changes.
[2024-02-15] MEDS: methADONE HCl 20 MG/2 ML ORAL.CONC 75 MG PO (07:20)
--- NOTE | 2024-02-15 07:24 | PC.NURSE ---
PT OOB eating breakfast at table in tv area with another pt.
[2024-02-15 08:24] VITALS: BP 100/71
[2024-02-15] MEDS: hydrOXYzine HCL 50 MG TABLET PO (08:29)
[2024-02-15] MEDS: Gabapentin 400 MG CAPSULE PO (08:29)
--- NOTE | 2024-02-15 12:43 | PC.NURSE ---
removed methadone 110 mg from pt's home med list for admissions purposes. methadone 75mg daily in pt's MAR (dose reduced bc pt went without for four days)
--- NOTE | 2024-02-15 13:58 | PHA.MEDREC ---
Addendum entered by Amando Whelan allan 02/15/24 14:32: Med rec reviewed Original Note: Pharmacy Consult ? Medication Reconciliation Pharmacy reviewed med rec done by nursing. Claims match what was confirmed on med rec.
--- NOTE | 2024-02-15 14:01 | MHC.CARE ---
Pt has been accepted to [facility] [address] [place] [phone] Phone:? Dr Duff is the accepting doctor [facility] 02/15/24 ED provider, charge accounts audit clerk, Computing Machine Operator, and pt?s nurse have been notified via [employer] text.
--- NOTE | 2024-02-15 15:06 | PC.NURSE ---
attempted to call [employer] 2x with provided number, no answer after several minutes. attempted to call [employer] with number on Website, was not able to get through to nurse
[2024-02-15 15:30] VITALS: BP 123/71; PULSE 72; RESP 18; TEMP 36.2; O2SAT 96
== END 2024-02-15 15:32 ==
PROVIDERS: Physician Assistant; Emergency Provider Emergency Medicine Emergency Medical Services
DX: R45.851 Suicidal ideations (principal); F41.9 Anxiety disorder, unspecified; F32.A Depression, unspecified; R45.1 Restlessness and agitation; F19.10 Other psychoactive substance abuse, uncomplicated; F11.20 Opioid dependence, uncomplicated; Z79.899 Other long term (current) drug therapy
CPT/HCPCS: 36415; 80053; 80143; 80179; 80307; 81003; 83690; 83735; 85025; 93005; 99285; J2060

== ENCOUNTER → 2024-02-15 10:40 | Outpatient (BNV) | payer OTHER, SELFPAY | PROVIDERS: Emergency Provider Emergency Medicine Emergency Medical Services; Visit Provider Internal Medicine | DX: R45.851 Suicidal ideations (principal) | CPT/HCPCS: 93010 ==

== ENCOUNTER 2024-09-12 23:57 | Inpatient (IN) | payer OTHER, SELFPAY ==
[2024-09-13 00:09] VITALS: BP 121/79; PULSE 83; RESP 16; TEMP 36; O2SAT 100; BMI 15.6
--- OUTSIDE RECORDS SUMMARY | 2024-09-13 00:23 | XMS_ITS | Clinical Summary ---
Author Organization [facility] Address [address] [place] [address] Phone Care Team Providers Care Recovery Operator Name Role Phone Robert Sloan MD Primary Care Provider Allergies No known active allergies Medications calcium carbonate (TUMS) 500 mg (200 mg elemental calcium) chewable tablet Chew 2 tablets (1,000 mg total). 10/12/2023 Active cloNIDine (CATAPRES) 0.1 mg tablet Take 1 tablet (0.1 mg total) by mouth. 10/26/2023 Active hydrOXYzine HCL (ATARAX) 50 mg tablet Take 1 tablet (50 mg total) by mouth. 10/26/2023 Active multivitamin (multivitamin with folic acid) tablet Take 1 tablet by mouth daily. 10/26/2023 Active naloxone (NARCAN) 4 mg/0.1 mL nasal spray [place] 0.1 mL into one nostril. Repeat with second device into other nostril after 3 min if no or minimal response. 10/12/2023 Active nicotine polacrilex (NICORETTE) 2 mg gum Take 2 each (4 mg total) by mouth. 10/26/2023 Active senna (SENOKOT) 8.6 mg tablet Take 2 tablets (17.2 mg total) by mouth. 10/12/2023 Active docusate sodium (COLACE) 100 mg capsule Take 1 capsule (100 mg total) by mouth every 12 (twelve) hours. 60 capsule 08/08/2024 09/08/19 25 Active Problems Problem Noted Date Diagnosed Date Anxiety 05/08/2023 History of opioid abuse ([facility] V24, [facility] V2 8) 05/08/2023 Opiate abuse, episodic ([facility] V24, [facility] V28 ) 08/22/2020 Overview (12/27/2023): On suboxone Cannabis abuse 10/09/2005 Overview (12/27/2023): IMO update Encounters Date Type Department Care Team Description 08/07/2024 10:49 PM EDT - 08/08/2024 1:[address] [facility] [address] [place] [id number] Erica Mac MD Dysuria (Primary Dx); Right sided abdominal pain; Elevated liver transaminase level; Constipation, unspecified constipation type Discharge Disposition: Home or Self Care from Last 3 Months Medical History Medical History Date Comments Kidney calculi Social History Tobacco Use Types Packs/Day Years Used Date Smoking Tobacco: Every Day Cigarettes Smokeless Tobacco: Never Alcohol Use Standard Drinks/Week Comments Not Currently 0 (1 standard drink = 0.6 oz pur e alcohol) Sex and Gender Information Value Date Recorded Sex Assigned at Not on file Legal Sex Male 6:20 AM EST Gender Identity Not on file Sexual Orientation Not on file Obstetrics History Last Filed Vital Signs Vital Sign Reading Time Taken Comments Blood Pressure 105/52 08/08/2024 12:10 PM EDT Pulse 50 08/08/2024 12:10 PM EDT Temperature 36.5 C (97.7 F) 08/08/2024 12:10 PM EDT Respiratory Rate 17 08/08/2024 12:10 PM EDT Oxygen Saturation 97% 08/08/2024 12:10 PM EDT Inhaled Oxygen Concentration - - Weight 72.6 kg (160 lb) 08/07/2024 6:56 PM EDT Height 185.4 cm (6' 1 ) 08/07/2024 6:56 PM EDT Body Mass Index 21.11 08/07/2024 6:56 PM EDT Plan of Treatment Health Maintenance Due Date Last Done Comments DTaP,Tdap,and Td Vaccines (1 - Tdap) 10/26/2007 Hepatitis B Vaccines (1 of 3 - 19+ 3-dose series) 10/26/2007 Pneumococcal Vaccine: Pediat rics (0 to 5 Years) and At-Risk Patients (6 to 64 Years) (1 of 2 - PCV) 10/26/2007 Cholesterol Screening (Lipid Panel) 02/19/2022 Depression Screening 02/19/2022 HIV Screening 02/19/2022 Hepatitis C Screening 02/19/2022 Social Influencers of Health Screening 02/19/2022 COVID-19 Vaccine (1 - 2023-2 5 season) 2023 Hepatitis A Vaccines (2 of 2 - Risk 2-dose series) 06/08/2024 12/10/2023 Influenza Vaccine (Season Ended) 2024 HIB Vaccines Aged Out No longer eligi ble based on patient's age to complete this topic HPV Vaccines Aged Out No longer eligi ble based on patient's age to complete this topic IPV Vaccines Aged Out No longer eligi ble based on patient's age to complete this topic MMR Vaccines Aged Out No longer eligi ble based on patient's age to complete this topic Meningococcal ACWY Vaccine Aged Out N o longer eligible based on patient's age to complete this topic Meningococcal B Vaccine Aged Out No l onger eligible based on patient's age to complete this topic RSV Immunization Patients Un malik 20 months Aged Out No longer eligible b ased on patient's age to complete this topic Varicella Vaccines Aged Out No longer eligible based on patient's age to complete this topic Procedures Procedure Name Priority Date/Time Associated Diagnosis Comments MR ABDOMEN WO CONTRAST MRCP STAT 08/08/2024 11:53 AM EDT US ABDOMEN LIMITED STAT 08/08/2024 8: [address] ABDOMEN PELVIS W CONTRAST STAT 08/08/2024 5:25 AM EDT DENNEY URINE CULTURE TUBE STAT 08/08/2024 12:08 AM EDT URINALYSIS WITH REFLEX MICROSCOPIC AND CULTURE STAT 08/08/2024 12:08 AM EDT URINALYSIS WITH REFLEX MICROSCOPIC AND CULTURE STAT 08/08/2024 12:08 AM EDT CHLAMYDIA TRACHOMATIS AND NEISSERIA GONORRHOEAE PCR STAT 08/08/2024 12:08 AM EDT CBC WITH AUTO DIFFERENTIAL STAT 08/07/2024 7:02 PM EDT COMPREHENSIVE METABOLIC PANEL STAT 08/07/2024 7:02 PM EDT CBC AND DIFFERENTIAL STAT 08/07/2024 7:02 PM EDT from Last 3 Months Results * MR Abdomen wo Contrast MRCP (08/08/2024 11:53 AM EDT) Anatomical Region Laterality Modality Body Magnetic Resonan ce 08/08/2024 12:3 3 PM EDT Impressions 08/08/2024 12:44 PM EDT Mild biliary duct dilatation without choledocholithiasis or obstructing mass. -------- FINAL REPORT -------- Dictated By: SHIRLEY BOOTH Dictated Date: 08/08/2024 12:33 ET Assigned Physician: SHIRLEY BOOTH Reviewed and Electronically Signed By: SHIRLEY BOOTH Signed Date: 08/08/2024 12:44 ET Workstation ID: [id number] Transcribed By: Self Edit Transcribed Date: 08/08/2024 12:33 ET Narrative 08/08/2024 12:44 PM EDT PROCEDURE: Abdominal MRI INDICATION: Pain TECHNIQUE: Multiplanar, multisequence MRI of the abdomen Without contrast. COMPARISON: Same day ultrasound FINDINGS: Hepatic parenchymal signal is normal. Subcentimeter hepatic cysts. No suspicious liver lesions. Gallbladder is normal. No cholelithiasis. Biliary ductal dilatation with common bile duct measuring up to 10 mm. Common bile duct smoothly tapers to the ampulla. No choledocholithiasis or obstructing mass detected on this noncontrast exam. Spleen, adrenal glands, and pancreas are within normal limits. Kidneys are normal. Abdominal aorta is normal in size. No retroperitoneal or mesenteric lymphadenopathy. Large stool throughout the colon. No bowel obstruction. No ascites or fluid collection. Visualized intrathoracic structures, superficial soft tissues, and bones are normal. Procedure Note Shirley Booth MD - 08/08/2024 PROCEDURE: Abdominal MRI INDICATION: Pain TECHNIQUE: Multiplanar, multisequence MRI of the abdomen Withoutcontrast. COMPARISON: Same day ultrasound FINDINGS: Hepatic parenchymal signal is normal. Subcentimeter hepatic cysts. Nosuspicious liver lesions. Gallbladder is normal. No cholelithiasis. Biliary ductal dilatation with common bile duct measuring up to 10 mm.Common bile duct smoothly tapers to the ampulla. No choledocholithiasisor obstructing mass detected on this noncontrast exam. Spleen, adrenal glands, and pancreas are within normal limits. Kidneys are normal. Abdominal aorta is normal in size. No retroperitoneal or mesentericlymphadenopathy. Large stool throughout the colon. No bowel obstruction. No ascites orfluid collection. Visualized intrathoracic structures, superficial soft tissues, and bonesare normal. IMPRESSION: Mild biliary duct dilatation without choledocholithiasis or obstructingmass. -------- FINAL REPORT -------- Dictated By: SHIRLEY BOOTH Dictated Date: 08/08/2024 12:33 ET Assigned Physician: SHIRLEY BOOTH Reviewed and Electronically Signed By: SHIRLEY BOOTH Signed Date: 08/08/2024 12:44 ET Workstation ID: [id number] Transcribed By: Self Edit Transcribed Date: 08/08/2024 12:33 ET Cande GALAVIZ IMG MRI PROCEDURES Fin al Result * US Abdomen Limited (08/08/2024 8:53 AM EDT) Anatomical Region Laterality Modality Body Ultrasound 08/08/2024 8:59 AM EDT Impressions 08/08/2024 9:05 AM EDT NO CHOLELITHIASIS OR EVIDENCE OF CHOLECYSTITIS. BILIARY DUCTAL DILATATION WITHOUT OBSTRUCTING STONE OR MASS SEEN BY CT. MRCP COULD EVALUATE FURTHER. -------- FINAL REPORT -------- Dictated By: SHIRLEY BOOTH Dictated Date: 08/08/2024 08:59 ET Assigned Physician: SHIRLEY BOOTH Reviewed and Electronically Signed By: SHIRLEY BOOTH Signed Date: 08/08/2024 09:05 ET Workstation ID: [id number] Transcribed By: Self Edit Transcribed Date: 08/08/2024 08:59 ET Narrative 08/08/2024 9:05 AM EDT PROCEDURE: US ABDOMEN LIMITED INDICATION: Pain TECHNIQUE: 2-D denney scale, color Doppler ultrasound of the abdomen. COMPARISON: No priors available. FINDINGS: Visualized portions of the pancreas, aorta, and IVC are within normal limits. No focal liver lesions. No cholelithiasis. Distended gallbladder and biliary tree with biliary ductal dilatation. Common bile duct measures 14 mm. Sonographic Renteria's sign was not reported. Right kidney measures 10.5 cm in length. No hydronephrosis. No ascites. Procedure Note Shirley Booth MD - 08/08/2024 PROCEDURE: US ABDOMEN LIMITED INDICATION: Pain TECHNIQUE: 2-D denney scale, color Doppler ultrasound of the abdomen. COMPARISON: No priors available. FINDINGS: Visualized portions of the pancreas, aorta, and IVC are withinnormal limits. No focal liver lesions. No cholelithiasis. Distended gallbladder and biliary tree with biliaryductal dilatation. Common bile duct measures 14 mm. Sonographic Renteria'ssign was not reported. Right kidney measures 10.5 cm in length. No hydronephrosis. No ascites. IMPRESSION: NO CHOLELITHIASIS OR EVIDENCE OF CHOLECYSTITIS. BILIARY DUCTAL DILATATION WITHOUT OBSTRUCTING STONE OR MASS SEEN BY CT.MRCP COULD EVALUATE FURTHER. -------- FINAL REPORT -------- Dictated By: SHIRLEY BOOTH Dictated Date: 08/08/2024 08:59 ET Assigned Physician: SHIRLEY BOOTH Reviewed and Electronically Signed By: SHIRLEY BOOTH Signed Date: 08/08/2024 09:05 ET Workstation ID: [id number] Transcribed By: Self Edit Transcribed Date: 08/08/2024 08:59 ET us Erica Mac MD IMG US PROCEDURES Final Result * CT Abdomen Pelvis w Contrast (08/08/2024 5:25 AM EDT) Anatomical Region Laterality Modality Body Computed Tomogra phy 08/08/2024 6:59 AM EDT Impressions 08/08/2024 6:59 AM EDT Severe / dense retained stool thorughout the colon with impacted appearance. No dilated bowel loops or air fluid levels. Appendix not seen, likely obscured by the extensive retained colonic stool. Biliary ductal dilation with common bile duct at 9 mm. No visible ductal stone or mass. Consider RUQ US or MRCP correlation. This document has been electronically signed by: Ketan Jaimes MD on 08/08/2024 06:59:50 Narrative 08/08/2024 6:59 AM EDT INDICATION: RLQ abdominal pain, appendicitis suspected (Age >= 14y) CT abdomen and pelvis with IV contrast. Comparison: None Findings: No free air. No solid liver mass. No calcified gallstones. Biliary ductal dilation with common bile duct at 9 mm. No visible ductal stone or mass. No splenomegaly or suspicious splenic lesions. No solid or cystic pancreatic mass. No pancreatic ductal dilation. No acute inflammatory changes. Adrenal glands without nodule. No suspicious renal mass. No hydronephrosis. No significant stranding. Bladder without acute pathology. Severe / dense retained stool thorughout the colon with impacted appearance. No dilated bowel loops or air fluid levels. Appendix not seen, likely obscured by the extensive retained colonic stool. No adenopathy. No abdominal aortic aneurysm. No suspicious pelvic masses. No acute soft tissue pathology. No acute osseous pathology. Procedure Note Ketan Jaimes MD - 08/08/2024 INDICATION: RLQ abdominal pain, appendicitis suspected (Age >= 14y) CT abdomen and pelvis with IV contrast. Comparison: None Findings: No free air. No solid liver mass. No calcified gallstones. Biliary ductal dilation with common bile duct at 9 mm. No visible ductal stone or mass. No splenomegaly or suspicious splenic lesions. No solid or cystic pancreatic mass. No pancreatic ductal dilation. No acute inflammatory changes. Adrenal glands without nodule. No suspicious renal mass. No hydronephrosis. No significant stranding. Bladder without acute pathology. Severe / dense retained stool thorughout the colon with impacted appearance. No dilated bowel loops or air fluid levels. Appendix not seen, likely obscured by the extensive retained colonic stool. No adenopathy. No abdominal aortic aneurysm. No suspicious pelvic masses. No acute soft tissue pathology. No acute osseous pathology. IMPRESSION: Severe / dense retained stool thorughout the colon with impacted appearance. No dilated bowel loops or air fluid levels. Appendix not seen, likely obscured by the extensive retained colonic stool. Biliary ductal dilation with common bile duct at 9 mm. No visible ductal stone or mass. Consider RUQ US or MRCP correlation. This document has been electronically signed by: Ketan Jaimes MD on 08/08/2024 06:59:50 us Erica Mac MD IMG CT PROCEDURES Final Result * (ABNORMAL) Urinalysis with reflex microscopic and culture (08/08/2024 12:08 AM EDT) Specific [place] Urine 1.033(H) 1.003 - 1.030 LAB URINALYSIS - AUTOMATED METHOD 08/08/2024 12:[address] [facility] pH, Urine 6.0 5.0 - 8.0 pH LAB URINALYSIS - AUTOMATED METHOD 08/08/2024 12:[address] [facility] Leukocytes, Urine Negative Negative LAB URINALYSIS - AUTOMATED METHOD 08/08/2024 12:[address] [facility] Nitrite, Urine Negative Negative LAB URINALYSIS - AUTOMATED METHOD 08/08/2024 12:[address] [facility] Protein, Urine Trace <=Trace mg/dL LAB URINALYSIS - AUTOMATED METHOD 08/08/2024 12:[address] [facility] Glucose, Urine Negative Negative mg/dL LAB URINALYSIS - AUTOMATED METHOD 08/08/2024 12:[address] [facility] Ketones, Urine Trace(A) Negative mg/dL LAB URINALYSIS - AUTOMATED METHOD 08/08/2024 12:[address] [facility] Urobilinogen, Urine 2.0(A) 0.2 - 1.0 mg/dL LAB URINALYSIS - AUTOMATED METHOD 08/08/2024 12:[address] [facility] Bilirubin, Urine Negative Negative LAB URINALYSIS - AUTOMATED METHOD 08/08/2024 12:[address] [facility] Blood, Urine Negative Negative LAB URINALYSIS - AUTOMATED METHOD 08/08/2024 12:23 AM EDT [facility] Urine Urine specimen obtained by clean catch procedure / Unknown Non-blood Collection / Unknown 08/08/2024 12:08 AM EDT 08/08/2024 12:16 AM EDT Erica Mac MD LAB URINE ORDERABLES Fin al Result Performing Organization Address City/[facility]/ZIP Co de Phone Number [facility] [address] [place] [address], [place] [phone] * Denney urine culture tube (08/08/2024 12:08 AM EDT) Extra Tube Hold for add-ons. 08/08/2024 2:01 AM EDT [facility] Comment:Auto resulted. Urine Urine specimen obtained by clean catch procedure / Unknown Non-blood Collection / Unknown 08/08/2024 12:08 AM EDT 08/08/2024 12:16 AM EDT Erica Mac MD LAB URINE ORDERABLES Fin al Result Performing Organization Address [facility]/ZIP Co de Phone Number [facility] [address] [place] [address], [place] [phone] * Chlamydia trachomatis and Neisseria gonorrhoeae molecular study (08/08/2024 12:08 AM EDT) Neisseria gonorrhoeae PCR Negative Negative LAB MOLECULAR DIAGNOSTICS METHOD 08/08/2024 10:01 AM EDT [facility] Chlamydia trachomatis PCR Negative Negative LAB MOLECULAR DIAGNOSTICS METHOD 08/08/2024 10:01 AM EDT [facility] Urine First stream urine specimen / Unknown Non-blood Collection / Unknown 08/08/2024 12:08 AM EDT 08/08/2024 12:15 AM EDT us Erica Mac MD LAB MICROBIOLOGY - GENER AL ORDERABLES Final Result [facility] [address] [place] [address], [place] [phone] * (ABNORMAL) CBC auto differential (08/07/2024 7:02 PM EDT) WBC 8.5 4.8 - 10.8 K/mcL LAB HEMETOLOGY METHOD 08/07/2024 7:22 PM EDT [facility] RBC 4.40(L) 4.50 - 5.50 M/mcL LAB HEMETOLOGY METHOD 08/07/2024 7:22 PM EDT [facility] Hemoglobin 13.5 13.5 - 17.5 g/dL LAB HEMETOLOGY METHOD 08/07/2024 7:22 PM EDT [facility] Hematocrit 41.0(L) 42.0 - 54.0 % LAB HEMETOLOGY METHOD 08/07/2024 7:22 PM EDT [facility] MCV 93.4 79.0 - 98.0 FL LAB HEMETOLOGY METHOD 08/07/2024 7:22 PM EDT [facility] MCH 30.8 27.0 - 32.0 pcg LAB HEMETOLOGY METHOD 08/07/2024 7:22 PM EDT [facility] MCHC 32.9 32.0 - 37.0 g/dL LAB HEMETOLOGY METHOD 08/07/2024 7:22 PM EDT [facility] RDW 13.1 11.0 - 15.0 % LAB HEMETOLOGY METHOD 08/07/2024 7:22 PM EDT [facility] Platelets 171 130 - 400 K/mcL LAB HEMETOLOGY METHOD 08/07/2024 7:22 PM EDT [facility] MPV 12.1(H) 7.0 - 11.0 FL LAB HEMETOLOGY METHOD 08/07/2024 7:[address] [facility] NRBC 0.0 <1.0 % LAB HEMETOLOGY METHOD 08/07/2024 7:[address] [facility] NRBC Absolute 0.00 <0.10 K/mcL LAB HEMETOLOGY METHOD 08/07/2024 7:[address] [facility] Neutrophils Relative 60.3 % LAB HEMETOLOGY METHOD 08/07/2024 7:[address] [facility] Lymphocytes Relative 33.6 % LAB HEMETOLOGY METHOD 08/07/2024 7:[address] [facility] Monocytes Relative 4.9 % LAB HEMETOLOGY METHOD 08/07/2024 7:[address] [facility] Eosinophils Relative 0.6 % LAB HEMETOLOGY METHOD 08/07/2024 7:[address] [facility] Basophils Relative 0.5 % LAB HEMETOLOGY METHOD 08/07/2024 7:[address] [facility] Immature Granulocytes Relative 0.1 % LAB HEMETOLOGY METHOD 08/07/2024 7:[address] [facility] Neutrophils Absolute 5.12 1.50 - 7.00 K/mcL LAB HEMETOLOGY METHOD 08/07/2024 7:[address] [facility] Lymphocytes Absolute 2.86 1.00 - 5.00 K/mcL LAB HEMETOLOGY METHOD 08/07/2024 7:[address] [facility] Monocytes Absolute 0.42 0.20 - 1.00 K/mcL LAB HEMETOLOGY METHOD 08/07/2024 7:[address] [facility] Eosinophils Absolute 0.05 0.00 - 0.50 K/mcL LAB [facility] Basophils Absolute 0.04 0.00 - 0.20 K/mcL LAB HEMETOLOGY METHOD 08/07/2024 7:22 PM EDT [facility] Immature Granulocytes Absolute 0.01 0.00 - 0.03 K/mcL LAB HEMETOLOGY METHOD 08/07/2024 7:22 PM EDT [facility] Blood Venous blood specimen / Unknown Venipuncture / Unknown 08/07/2024 7:02 PM EDT 08/07/2024 7:12 PM EDT us David Jarvis MD LAB BLOOD ORDERABLES Final Resu lt [facility] [address] [place] [address], [place] [phone] * (ABNORMAL) Comprehensive metabolic panel (08/07/2024 7:02 PM EDT) Sodium 141 133 - 145 mmol/L LAB CHEMISTRY METHOD 08/07/2024 10:[address] [facility] Potassium 3.8 3.5 - 5.5 mmol/L LAB CHEMISTRY METHOD 08/07/2024 10:[address] [facility] Chloride 105 96 - 110 mmol/L LAB CHEMISTRY METHOD 08/07/2024 10:[address] [facility] CO2 31 21 - 32 mmol/L LAB CHEMISTRY METHOD 08/07/2024 10:[address] [facility] Anion Gap 5 3 - 11 LAB CHEMISTRY METHOD 08/07/2024 10:[address] [facility] Glucose 76 70 - 100 mg/dL LAB CHEMISTRY METHOD 08/07/2024 10:[address] [facility] BUN 10 5 - 25 mg/dL LAB CHEMISTRY METHOD 08/07/2024 10:[address] [facility] Creatinine 0.88 0.70 - 1.30 mg/dL LAB CHEMISTRY METHOD 08/07/2024 10:[address] [facility] eGFR 115 >=60 mL/min/1. 73m2 LAB CHEMISTRY METHOD 08/07/2024 10:[address] [facility] Comment:Calculation based on the Chronic Kidney Disease Epidemiology Collaboration (CKD-EPI) equation refit without adjustment for race. BUN/Creatinine Ratio 11.4 LAB CHEMISTRY METHOD 08/07/2024 10:[address] [facility] Calcium 9.0 8.5 - 10.5 mg/dL LAB CHEMISTRY METHOD 08/07/2024 10:[address] [facility] AST (SGOT) 52(H) 10 - 42 unit/L LAB CHEMISTRY METHOD 08/07/2024 10:[address] [facility] ALT (SGPT) 89(H) 10 - 60 unit/L LAB CHEMISTRY METHOD 08/07/2024 10:[address] [facility] Alkaline Phosphatase 143(H) 42 - 121 unit/L LAB CHEMISTRY METHOD 08/07/2024 10:[address] [facility] Total Protein 7.5 6.0 - 8.0 g/dL LAB CHEMISTRY METHOD 08/07/2024 10:[address] [facility] Albumin 3.8 3.2 - 5.0 g/dL LAB CHEMISTRY METHOD 08/07/2024 10:[address] [facility] Total Bilirubin 0.5 0.0 - 1.4 mg/dL LAB CHEMISTRY METHOD 08/07/2024 10:[address] [facility] Blood Venous blood specimen / Unknown Venipuncture / Unknown 08/07/2024 7:02 PM EDT 08/07/2024 7:52 PM EDT us David Jarvis MD LAB BLOOD ORDERABLES Final Resu lt [facility] [address] [place] [address], [place] [phone] from Last 3 Months Insurance [facility] Care Teams Recovery Operator Relationship Specialty Start Date End Date Robert Sloan MD [address] [place] [address] PCP - General 07/06/22
[2024-09-13 00:39] LABS: MANUAL DIFF FLAG NO
[2024-09-13 00:41] LABS: Hematocrit 39.8 % (42.0-52.0); Hemoglobin 13.4 g/dl (14.0-18.0); Imm Gran Abs Auto 0.01 X10*3/uL (0.00-0.03); Imm Gran Pct Auto 0.1 % (0.0-0.4); Lymphocytes Absolute Auto 2.9 X10*3/uL (1.2-4.9); Mean Corpuscular HGB Conc 33.7 g/dl (31.0-36.0); Mean Corpuscular Hemoglobin 31.1 pg (27.0-33.0); Mean Corpuscular Volume 92.3 fL (80.0-98.0); NRBC Abs Auto 0.000 X10*3/uL (0.0-0.012); NRBC Pct Auto 0.0 /100WBC (0.0-0.2); Platelet Count 140 X10*3/uL (160-400); Red Blood Count 4.31 X10*6/uL (4.60-5.80); White Blood Count 7.1 X10*3/uL (4.8-10.8)
[2024-09-13 01:09] LABS: Alanine Aminotransferase 50 U/L (0-40); Albumin Level 4.1 g/dL (3.5-5.0); Alkaline Phosphatase 90 U/L (39-117); Anion Gap 10 (12-20); Aspartate Amino Transferase 46 U/L (5-37); Blood Urea Nitrogen 9 mg/dL (9-16); Calcium 8.7 mg/dL (8.4-10.2); Carbon Dioxide 28 mmol/L (22-29); Chloride 109 mmol/L (96-108); Creatinine Clr Calc Pharmacy 90.5; Estimated Glomerular Filt Rate > 60; Potassium 3.6 mmol/L (3.3-5.1); Sodium 143 mmol/L (135-145); Total Protein 6.9 g/dL (6.5-8.0)
[2024-09-13 01:15] LABS: Resp Syncy Virus RNA Qual PCR NEGATIVE (Negative); SARS COV2 PCR INHOUSE NEGATIVE (Negative)
--- NOTE | 2024-09-13 01:30 | ED_ITS ---
HPI - General Adult General Chief complaint: Psychiatric Symptoms Stated complaint: Mental Health Crisis Time Seen by Provider: 09/13/24 00:56 Source: patient Limitations: no limitations History of Present Illness ED Provider: Helen Scruggs PA-C HPI narrative: 33-year-old male with a history of polysubstance abuse, anxiety and depression presents with vague SI. Patient is struggling with the recent of both of his parents; his father past 8 months ago, his mother just passed 5 months ago. In addition, the patient is going through a divorce, he is not seeing his children. When asked if the patient is having thoughts of self-harm, he states ? he does not care about living?. The patient does not have a specific plan for self-harm. Related Data Home Medications ?Medication ?Instructions ?Recorded ?Confirmed nicotine (polacrilex) 2 mg gum 2 mg PO Q4H PRN Nicotin e Cravings 02/14/24 09/13/24 gabapentin 600 mg tablet 600 mg PO TID 09/13/2409/13 methadone 10 mg/mL oral concentrate 120 mg PO DAILY 09/13/24 Allergies Allergy/AdvReac Type Severity Reaction Status Date / Time acetaminophen (From TYLENOL) AdvReac Mild DIARRHEA Verified 09/13/24 00:12 [facility] Past Medical History Attestation statement: The following information was validated with the patient. Social History Social History Household Members: Unknown / Unable to assess Household Members Other:: Per crisis, kids and do not live with him Housing: Unknown / Unable to assess Do you presently have visiting nurse or other home services: No Alcohol intake: current Alcohol intake frequency: does not drink Patient Tobacco Use Status: Refuse Tobacco use screen Smoked in Last 30 Days: Yes Use of substances other than those prescribed or required for medical reasons: Yes Substance Use Type: Prescription Drugs Currently Displaying Signs/Symptoms of Drug Intoxication Withdrawal: No Advance Directives: No Advance Directives Information Provided: Yes Do you have thoughts of harming others: None Do you have a plan to hurt others: No Plan Recently lost weight without trying: Yes How much weight loss: 24-33 pounds Eating poorly because of decreased appetite: Yes Nutrition screen score: 6 Nutrition Risks: No Nutritional Risk service: No Sexual orientation: Straight/Heterosexual Physical Exam ED Vital Signs: Vital Signs - 24 hr 09/13/24 19:30 09/14/24 04:04 09/14/24 10:23 Temperature 98.2 F 97.9 F Pulse Rate 85 62 56 Respiratory Rate 15 18 16 Blood Pressure 98/65 105/59 L 139/79 Pulse Oximetry 99 99 99 Oxygen Delivery Method Room Air Room Air Room Air BMI result Body Mass Index 15.6 Course Reevaluation(s) Reevaluation #1: Time: 02:15 Date: 09/13/24 Provider: ANASTACIA Diego Patient in physician observation for psychiatric evaluation.? No acute events reported overnight. No current complaints. VS stable.? Patient is in bed search status/pending CARE team evaluation. Will continue to monitor. Time: 02:14 Reevaluation #2: 09/13/2024 8:15 DR. Sidhu's progress note: VSS, no events reported by nurses overnight, bed search is underway, under section 12, continue physician observation. Time: 08:15 Reevaluation #3: 09/14/2024 10;00, DR. Sidhu's Progress note: VSS, labs were reviewed within baseline, care team input is appreciated, patient is section 12 now and bed search is underway, will continue with physician observation. Time: 10:00 Medications Administered Generic Name Dose Route Start Last Admin Trade Name Freq PRN Reason Stop Dose Admin Clonidine HCl 0.2 mg 09/15/24 13:45 09/15/24 23:47 Clonidine Hcl 0.2 Mg Tablet PO 0.2 mg Q4H PRN Administration anxiety Protocol Gabapentin 600 mg 09/13/24 10:45 09/15/24 20:15 Gabapentin 600 Mg Tablet PO 600 mg TID INOCENCIO Administration Hydroxyzine HCl 50 mg 09/15/24 13:45 09/15/24 23:48 Hydroxyzine Hcl 50 Mg Tablet PO 50 mg Q4H PRN Administration Anxiety Methadone HCl 120 mg 09/13/24 10:45 09/15/24 07:59 Methadone Hcl 20 Mg/2 Ml Oral.Conc PO 120 mg DAILY INOCENCIO Administration Nicotine 14 mg 09/15/24 09:00 09/15/24 08:27 Nicotine 14 Mg Patch.Td24 TRANSDERMA 14 mg DAILY INOCENCIO Administration Discontinued Medications Generic Name Dose Route Start Last Admin Trade Name Freq PRN Reason Stop Dose Admin Diphenhydramine HCl 50 mg 09/13/24 20:44 09/13/24 20:50 Diphenhydramine Hcl 25 Mg Capsule PO 09/13/24 20:45 Not Given ONCE ONE Hydroxyzine HCl 25 mg 09/14/24 10:17 09/15/24 09:20 Hydroxyzine Hcl 25 Mg Tablet PO 25 mg Q6H PRN Administration Anxiety Lorazepam 2 mg 09/13/24 02:03 09/13/24 02:16 Lorazepam 1 Mg Tablet PO 09/13/24 02:04 2 mg ONCE ONE Administration Lorazepam 2 mg 09/13/24 11:55 09/13/24 11:59 Lorazepam 1 Mg Tablet PO 09/13/24 11:56 2 mg ONCE ONE Administration Lorazepam 1 mg 09/13/24 22:28 09/14/24 15:37 Lorazepam 1 Mg Tablet PO 1 mg Q6H PRN Administration Anxiety Lorazepam 2 mg 09/14/24 10:17 09/14/24 10:30 Lorazepam 1 Mg Tablet PO 09/14/24 10:18 2 mg ONCE ONE Administration Lorazepam 1 mg 09/14/24 18:40 09/15/24 08:27 Lorazepam 1 Mg Tablet PO 1 mg Q4H PRN Administration ciwa 8-12 Lorazepam 1 mg 09/15/24 12:00 09/15/24 20:15 Lorazepam 1 Mg Tablet PO 09/15/24 21:01 1 mg TID@1200,1700,2100 INOCENCIO Administration Nicotine 21 mg 09/13/24 02:03 09/13/24 02:16 Nicotine 21 Mg Patch.Td24 TRANSDERMA 09/13/24 02:04 21 mg ONCE ONE Administration Medical Decision Making Medical Decision Making MDM Narrative: 33-year-old male with a history of polysubstance abuse on methadone, anxiety and depression presents with vague SI. Patient is struggling with the recent of both of his parents; his father past 8 months ago, his mother just passed 5 months ago. In addition, the patient is going through a divorce, he is not seeing his children. When asked if the patient is having thoughts of self-harm, he states ? he does not care about living?. The patient does not have a specific plan for self-harm. Problem: Psychiatric illness, substance abuse History: Per patient I have considered the following differential diagnoses: SI, HI, decompensated psychiatric illness, drug/alcohol intoxication Plan: Screening labs including serum ethanol and drug screen will be obtained. The patient will be referred to the care team. Patient is requesting Ativan for his anxiety. We will also order a nicotine patch. I have independently reviewed the following tests: Labs: No leukocytosis, not anemic, no electrolyte abnormality, ethanol less than 10, drug screen positive for cocaine, cannabinoid, methadone at this time, 19:00, patient has been accepted to [facility] patient is on a Section 12. Patient is agreeable to admission to the hospital and treatment. CV sign Lab Data 09/13/24 00:34 09/15/24 07:27 Labs: Lab Results 09/13/24 09/13/24 Range/Units 00:34 01:13 WBC 7.1 (4.8-10.8) X10*3/uL RBC 4.31 L (4.60-5.80) X10*6/uL Hgb 13.4 L (14.0-18.0) g/dl Hct 39.8 L (42.0-52.0) % MCV 92.3 (80.0-98.0) fL MCH 31.1 (27.0-33.0) pg MCHC 33.7 (31.0-36.0) g/dl RDW 12.4 (11.0-16.0) % Plt Count 140 L D (160-400) X10*3/uL MPV 11.5 (9.4-12.4) fL Immature Gran % (Auto) 0.1 (0.0-0.4) % Neut % (Auto) 47.8 (45-73) % Lymph % (Auto) 40.1 H (20-40) % [place] % (Auto) 5.5 (2-11) % Eos % (Auto) 5.9 H (0-4) % Baso % (Auto) 0.6 (0-2) % Lymph # (Auto) 2.9 (1.2-4.9) X10*3/uL [place] # (Auto) 0.4 (0.1-1.2) X10*3/uL Eos # (Auto) 0.4 (0.0-0.4) X10*3/uL Baso # (Auto) 0.0 (0.0-0.2) X10*3/uL Abs Immat Gran (auto) 0.01 (0.00-0.03) X10*3/uL Absolute Neuts (auto) 3.4 (2.0-8.3) x10*3/uL Absolute Nucleated RBC 0.000 (0.0-0.012) X10*3/uL Nucleated RBC % (auto) 0.0 (0.0-0.2) /100WBC Sodium 143 (135-145) mmol/L Potassium 3.6 D (3.3-5.1) mmol/L Chloride 109 H (96-108) mmol/L Carbon Dioxide 28 (22-29) mmol/L Anion Gap 10 L (12-20) BUN 9 (9-16) mg/dL Creatinine 0.84 (0.5-1.4) mg/dL Estim Creat Clear Calc 90.5 Estimated GFR > 60 Random Glucose 89 (60-115) mg/dL Calcium 8.7 D (8.4-10.2) mg/dL Total Bilirubin 0.5 (0.0-1.0) mg/dL AST 46 H (5-37) U/L ALT 50 H (0-40) U/L Alkaline Phosphatase 90 (39-117) U/L Total Protein 6.9 (6.5-8.0) g/dL Albumin 4.1 (3.5-5.0) g/dL Urine Opiates Screen Not Detected (Not Detect) Ur Buprenorphine Scrn Not Detected (Not Detect) ng/mL Ur Oxycodone Screen Not Detected (Not Detect) ng/mL Urine Methadone Screen Positive H (Not Detect) ng/mL Urine Fentanyl Screen Not Detected (Not Detect) Ur Barbiturates Screen Not Detected (Not Detect) Ur Phencyclidine Scrn Not Detected (Not Detect) Ur Amphetamines Screen Not Detected (Not Detect) U Benzodiazepines Scrn Not Detected (Not Detect) Urine Cocaine Screen POSITIVE H (Not Detect) U Marijuana (THC) Screen POSITIVE H (Not Detect) Ethyl Alcohol < 10 mg/dL Influenza Type A (PCR) NEGATIVE (Negative) Influenza Type B (PCR) NEGATIVE (Negative) RSV RNA Qual (PCR) NEGATIVE (Negative) SARS-CoV-2 RNA (RT-PCR) NEGATIVE (Negative) Discharge Plan Discharge Clinical Impression: Suicidal ideation, Polysubstance abuse Patient Disposition: Admitted As Inpatient Interventions: Admission Worksheet (ED) Last Done: 09/14/24 21:05 Discharge Date/Time: 09/14/24 21:06
[2024-09-13 01:33] LABS: Cannabinoid Screen Urine POSITIVE (Not Detect)
[2024-09-13] MEDS: Nicotine 21 MG PATCH.TD24 TRANSDERMA (02:16)
--- NOTE | 2024-09-13 04:08 | PC.NURSE ---
Addendum entered by Yumiko Sorto RN 09/13/24 06:30: pts 3 bottles of methadone 120mg each, sent to pharmacy. pharmacy slip in chart. verified with Argenis ABEL. Original Note: pt from triage 0045 changed over and belongings secured. pt calm and cooperative, stating hes recently had significant life stressors increasing depression and substance use. pt admits to SI without a plan and wants help to feel better and be med compliant. pt in bed restless stating he hasnt been able to sleep in days.
--- NOTE | 2024-09-13 10:02 | PC.NURSE ---
med rec completed with help from pt and pharmacy claims. Pt states he recently upped his Gabapentin dose to 600mg and has been taking it though has missed a dose here and there. He states he no longer takes clonidine, hydroxyzine or benedryl. methadone dose verified with clinic and faxed to pharmacy. Pt takes 120mg daily. Last dosed yesterday at clinic. take home bottles sent to pharmacy by previous nursing shift. pt requesting Ativan which he states he buys on the streets.
--- NOTE | 2024-09-13 10:11 | HE.PHANOTE ---
RE: METHADONE DOSING Last dose of methadone 120 mg was given on 09/12/24 @8588 at [facility] [place] [phone] with 3 take home doses per Musa.
[2024-09-13] MEDS: methADONE HCl 20 MG/2 ML ORAL.CONC 120 MG PO (11:58)
--- NOTE | 2024-09-13 12:06 | PC.NURSE ---
pt reporting increased anxiety - not able to sit still and mind is racing. Per Dr. Sidhu verbal give 2mg lorazepam PO
[2024-09-13 19:30] VITALS: BP 98/65; PULSE 85; RESP 15; TEMP 36.8; O2SAT 99
--- NOTE | 2024-09-13 20:06 | PC.NURSE ---
client asked for medication for anxiety 30 mins ago, deliverd gabapetin and told client progress. client had to be awakened to deliver HS med. client expressed displeasure and t/w explained how placement would probably be tomorrow, client states i have a bottle of gabapentin at home then asked about dc. t/w went and talked to care call center team leader regarding that possibility and t/w went back to client who then expressedf ambivalence. will continue to monitor.
--- NOTE | 2024-09-13 21:29 | PC.NURSE ---
asked provider again for medication for reported anxiety
--- NOTE | 2024-09-14 | ECG_ITS ---
Test Reason : qtc Blood Pressure : */* mmHG Vent. Rate : 59 BPM Atrial Rate : 59 BPM P-R Int : 128 ms QRS Dur : 84 ms QT Int : 512 ms P-R-T Axes : 68 63 60 degrees QTcB Int : 506 ms Sinus bradycardia Prolonged QT Abnormal ECG When compared with ECG of 15-Feb-2024 10:40, No significant change was found Referred By: Radha Gamino Electronically Signed By: STEVEN LANDERS MD
[2024-09-14 04:04] VITALS: BP 105/59; PULSE 62; RESP 18; TEMP 36.6; O2SAT 99
--- NOTE | 2024-09-14 07:40 | PC.NURSE ---
Assumed care of patient at 0645, patient appears to be in no apparent distress this am, calm and cooperative. Continue plan of care for dual dx bedsearch
--- NOTE | 2024-09-14 07:44 | PHA.MEDREC ---
Pharmacy Consult ? Medication Reconciliation Pharmacy has completed the medication reconciliation. Reviewed med rec done by nursing
[2024-09-14] MEDS: methADONE HCl 20 MG/2 ML ORAL.CONC 120 MG PO (08:02)
--- NOTE | 2024-09-14 10:04 | PC.NURSE ---
Pt reporting increased anxiety, requesting PRN ativan
--- NOTE | 2024-09-14 10:20 | PC.NURSE ---
Pt reporting increased anxiety and agitation, stating that he is withdrawing from benzos and alcohol. MD Sidhu made aware. Plan for an additional 2mg Ativan dose (one time) along with a PRN order of 25mg Hydroxyzine
[2024-09-14 10:23] VITALS: BP 139/79; PULSE 56; RESP 16; O2SAT 99
[2024-09-14 19:05] VITALS: BP 99/64; PULSE 72; RESP 18; TEMP 37.4; O2SAT 97
[2024-09-14 21:05] VITALS: BP 105/67; PULSE 70; RESP 16; TEMP 37.1; O2SAT 97
[2024-09-15 00:53] VITALS: BMI 18.2
--- NOTE | 2024-09-15 05:51 | PC.ADMIT ---
Pt is a 33 yo male admitted to the unit from the POD. Pt arrived on unit at 2104. Legal status is CV. No medical issues. Pt denies alcohol use. Reports methadone use, cocaine use and THC use. Pt also reports benzodiazepine use that he 'buys off the street . Utox positive for THC, methadone and cocaine. Reports precipitant to admission as loss of grandmother, mother and father within a years time. Pt reports that his kids are not with him and he has not seen them, currently pending divorce. Pt reports increasing depression and vague SI. Has a hx of 20 detoxes per crisis assessment. Per recent EKG, QT is 512 and QTc is 506. Pt presents as anxious, thin and some depression in his affect. Provider drywall contractor Bony notified of admission and orders obtained. Skin check unremarkable. Pt placed on 15 minute safety checks. Pt reports feeling safe on the unit.
--- NOTE | 2024-09-15 07:08 | PHA.MEDREC ---
Pharmacy Consult ? Medication Reconciliation Pharmacy has completed the medication reconciliation. Reviewed med rec by nursing, matches claims.
[2024-09-15 07:15] VITALS: BP 115/73; PULSE 60; RESP 16; TEMP 37.1; O2SAT 98
[2024-09-15 07:54] LABS: Hemoglobin A1C 106.5656 umol/L; Total Hemoglobin (HGBA1C) 3500.9342 umol/L
[2024-09-15 07:57] LABS: Alanine Aminotransferase 144 U/L (0-40); Albumin Level 3.6 g/dL (3.5-5.0); Alkaline Phosphatase 129 U/L (39-117); Anion Gap 9 (12-20); Aspartate Amino Transferase 105 U/L (5-37); Blood Urea Nitrogen 13 mg/dL (9-16); Calcium 9.0 mg/dL (8.4-10.2); Carbon Dioxide 35 mmol/L (22-29); Chloride 105 mmol/L (96-108); Cholesterol 137 mg/dL (<200); Creatinine Clr Calc Pharmacy 101.0; Estimated Glomerular Filt Rate > 60; HDL Cholesterol 37 mg/dL (>40); Potassium 5.0 mmol/L (3.3-5.1); Sodium 144 mmol/L (135-145); Total Protein 6.3 g/dL (6.5-8.0); Triglycerides 130 mg/dL (<150)
[2024-09-15] MEDS: methADONE HCl 20 MG/2 ML ORAL.CONC 120 MG PO (07:59)
[2024-09-15 08:11] LABS: Thyroid Stimulating Hormone 1.39 uIU/mL (0.32-4.0)
[2024-09-15 08:25] LABS: Folate 6.9 ng/mL (> or = 4.0); Vitamin B12 688 pg/mL (200-900)
[2024-09-15] MEDS: Nicotine 14 MG PATCH.TD24 TRANSDERMA (08:27)
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
--- NOTE | 2024-09-15 12:08 | PC.NURSE ---
Pt signed a three day notice Sunday09/15/2024, up on 09/18/2024.
[2024-09-15 14:42] VITALS: BP 138/70
[2024-09-15 18:51] VITALS: BP 108/71
[2024-09-15 20:00] VITALS: BP 103/55; PULSE 63; RESP 16; TEMP 36.9; O2SAT 99
[2024-09-15 23:47] VITALS: BP 103/68
[2024-09-16 07:46] VITALS: BP 99/58; PULSE 68; RESP 16; TEMP 36.2; O2SAT 98
[2024-09-16] MEDS: methADONE HCl 20 MG/2 ML ORAL.CONC 120 MG PO (08:25)
[2024-09-16] MEDS: Nicotine 14 MG PATCH.TD24 TRANSDERMA (08:32)
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
[2024-09-16 11:36] VITALS: BP 104/65
[2024-09-16 20:00] VITALS: BP 113/67; PULSE 81; RESP 16; TEMP 37.4; O2SAT 95
[2024-09-16 20:24] VITALS: BP 113/67
[2024-09-17 07:49] VITALS: BP 98/54; PULSE 65; RESP 16; TEMP 36.9; O2SAT 97
[2024-09-17] MEDS: methADONE HCl 20 MG/2 ML ORAL.CONC 120 MG PO (07:58)
[2024-09-17 08:55] VITALS: BP 111/61
== END 2024-09-17 10:12 | disposition home or self-care (01) | DRG 753 ==
LOC: HO.ED 09-14 18:57 → HO.PADLT16 09-14 19:26
PROVIDERS: Physician Assistant Medical; Admitting Provider Social Worker; Emergency Provider Emergency Medicine; Visit Provider Social Worker
DX: F39 Unspecified mood [affective] disorder (principal); R45.851 Suicidal ideations; F14.10 Cocaine abuse, uncomplicated; F11.20 Opioid dependence, uncomplicated; F60.2 Antisocial personality disorder; Z63.4 Disappearance and death of family member; F13.10 Sedative, hypnotic or anxiolytic abuse, uncomplicated; F19.10 Other psychoactive substance abuse, uncomplicated; Z20.822 Contact with and (suspected) exposure to COVID-19; Z79.899 Other long term (current) drug therapy
CPT/HCPCS: 0241U; 36415; 80053; 80061; 80307; 82607; 82746; 83036; 84443; 85025; 93005; 99285; S9485

== ENCOUNTER → 2024-09-14 17:29 | Outpatient (BNV) | payer OTHER, SELFPAY | PROVIDERS: Admitting Provider Social Worker; Emergency Provider Emergency Medicine; Visit Provider Internal Medicine Cardiovascular Disease | DX: R00.1 Bradycardia, unspecified (principal) | CPT/HCPCS: 93010 ==

== ENCOUNTER → 2024-09-14 18:38 | Outpatient (BNV) | payer OTHER, SELFPAY | PROVIDERS: Admitting Provider Social Worker; Emergency Provider Emergency Medicine; Visit Provider Psychiatry & Neurology Psychiatry | DX: F14.10 Cocaine abuse, uncomplicated (principal); F13.10 Sedative, hypnotic or anxiolytic abuse, uncomplicated; F19.10 Other psychoactive substance abuse, uncomplicated; R45.851 Suicidal ideations; F11.20 Opioid dependence, uncomplicated; F39 Unspecified mood [affective] disorder; F60.2 Antisocial personality disorder | CPT/HCPCS: 90792; 99231; 99239 ==